=== PATIENT | male | born 1965 | race Two or more races ===

== ENCOUNTER 2024-08-03 06:12 | Emergency (ER) | payer OTHER ==
[~2024-08-03] VITALS: Ht 177.8 cm; Wt 86.5 kg
--- NOTE | 2024-08-03 07:12 | ED.PDOC ---
HPI Comments 59 year old male presents to the ED with chief complaint of headache. Patient reports that he has been experiencing a headache for the past 5 days to his whole head which has never happened before. Patient relays that he had been diagnosed with HTN in the past by his PCP Dr. Butler, however, when he was prescribed Losartan, he had never taken it. Patient states he visited on and was given another prescription of Losartan 50mg, which he has taken since Sunday. Patient's BP was noted to be 202/117 and 217/147 on repeat in triage. Patient denies any dizziness, chest pain, SOB, numbness, weakness, blurred vision, or N/V. Chief Complaint: High Blood Pressure Time Seen by MD: 07:04 Reviewed Notes: Nurses Notes, Medications, Allergies Allergies: Coded Allergies: NO KNOWN ALLERGIES (Unverified , 08/03/24) Information Source: Patient Mode of Arrival: Ambulatory Severity: Moderate Timing: Days Duration: Intermittent Prehospital treatment: None Cardiac Risk Factors: HTN PE Risk Factors: None History of: None Past Medical History PAST MEDICAL HISTORY: HTN Surgical History: Denies all surgeries Family History Family History: Reviewed,noncontributory to illness Social History Smoker: Non-Smoker Alcohol: Denies ETOH Use Drugs: Denies Drug Use Lives In: Home Constitutional: denies: chills, diaphoresis, fatigue, fever, malaise, sweats, weakness, others EENTM: denies: blurred vision, double vision, ear bleeding, ear discharge, ear drainage, ear pain, ear ringing, eye pain, eye redness, hearing loss, mouth pain, mouth swelling, nasal discharge, nose bleeding, nose congestion, nose pain, photophobia, tearing, throat pain, throat swelling, voice changes, others Respiratory: denies: cough, hemoptysis, orthopnea, SOB at rest, shortness of breath, SOB with excertion, stridor, wheezing, others Cardiovascular: denies: chest pain, dizzy spells, diaphoresis, Dyspnea on exertion, edema, irregular heart beat, left arm pain, lightheadedness, palpitations, PND, syncope, others Gastrointestinal: denies: abdomen distended, abdominal pain, blood streaked bowels, constipated, diarrhea, dysphagia, difficulty swallowing, hematemesis, melena, nausea, poor appetite, poor fluid intake, rectal bleeding, rectal pain, vomiting, others Genitourinary: denies: burning, dysuria, flank pain, frequency, hematuria, incontinence, penile discharge, penile sore, pain, testicle pain, testicle swelling, urgency, others Neurological: reports: headache; denies: dizziness, fainting, left sided numbness, left sided weakness, numbness, paresthesia, pre-existing deficit, right sided numbness, right sided weakness, seizure, speech problems, tingling, tremors, weakness, others Musculoskeletal: denies: back pain, gout, joint pain, joint swelling, muscle pain, muscle stiffness, neck pain, others Integumetry: denies: bruises, change in color, change in hair/nails, dryness, laceration, lesions, lumps, rash, wounds, others Allergic/Immunocompromised: denies: Difficulty Healing, Frequent Infections, Hives, Itching, others Hematologic/Lymphatic: denies: anemia, blood clots, easy bleeding, easy bruising, swollen glands, others Endocrine: denies: excessive hunger, excessive sweating, excessive thirst, excessive urination, flushing, intolerance to cold, intolerance to heat, unexplained weight gain, unexplained weight loss, others Psychiatric: denies: anxiety, bipolar disorder, depression, hopeless, panic disorder, schizophrenia, sleepless, suicidal, others All Other Systems: Reviewed and Negative Physical Exam General Appearance: No Apparent Distress, Normal HEENT: Normal ENT Inspection, PERRL/EOMI, TMs Normal Neck: Full Range of Motion, Non-Tender, Normal, Normal Inspection Respiratory: Chest Non-Tender, Lungs Clear, No Accessory Muscle Use, No Respiratory Distress, Normal Breath Sounds Cardiovascular: No Edema, No JVD, No Murmur, No Gallop, Normal Peripheral Pulses, Regular Rate/Rhythm Breast Exam: Deferred Gastrointestinal: No Organomegaly, Non Tender, No Pulsatile Mass, Normal Bowel Sounds, Soft Genitalia: Deferred Pelvic: Deferred Rectal: Deferred Extremities: No calf tenderness, Normal capillary refill, Normal inspection, N ormal range of motion, Non-tender, No pedal edema Musculoskeletal : Apperance: Normal Neurologic: Alert, 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 Was a procedure done?: No CP Differential Dx Differential Diagnosis: MAT, DE, PAC's Differential Diagnosis: CHF, HTN Essential, HTN Accelerated, HTN Encephalopathy Differential Diagnosis: Myocardial Infarction, Pericarditis X-Ray, Labs, Meds, VS Vital Signs Date Time Temp Pulse Resp B/P (MAP) Pulse Ox O2 Delivery O2 Flow Rate FiO2 08/03/24 08:02 65 08/03/24 07:00 98.6 79 16 217/147 (170) 99 08/03/24 07:00 79 Lab Test 08/03/24 08:00 08/03/24 07:15 08/03/24 07:00 Range/Units Troponin I High Sensitivity < 3 L < 3 L </=54 ng/L White Blood Count 8.1 4.4-10.8 10^3/uL Red Blood Count 5.60 4.5-5.90 10^6/uL Hemoglobin 16.8 13.5-17.5 g/dL Hematocrit 50.0 41.0-53.0 % Mean Corpuscular Volume 89.3 80.0-100.0 fL Mean Corpuscular Hemoglobin 30.0 28.0-32.0 pg Mean Corpuscular Hemoglobin Concent 33.5 32.0-36.0 g/dL Red Cell Distribution Width 14.2 11.8-14.3 % Platelet Count 224 140-450 10^3/uL Mean Platelet Volume 7.8 6.9-10.8 fL Neutrophils (%) (Auto) 74.0 37.0-80.0 % Lymphocytes (%) (Auto) 16.9 10.0-50.0 % Monocytes (%) (Auto) 7.6 0.0-12.0 % Eosinophils (%) (Auto) 1.1 0.0-7.0 % Basophils (%) (Auto) 0.4 0.0-2.0 % Neutrophils # (Auto) 6.0 1.6-8.6 10 ^3/uL Lymphocytes # (Auto) 1.4 0.4-5.4 10 ^3/uL Monocytes # (Auto) 0.6 0-1.3 10 ^3/uL Eosinophils # (Auto) 0.1 0-0.8 10 ^3/uL Basophils # (Auto) 0 0-0.2 10 ^3/uL Nucleated Red Blood Cells 0.1 % Sodium Level 141 136-145 mmol/L Potassium Level 4.2 3.5-5.1 mmol/L Chloride Level 105 98-107 mmol/L Carbon Dioxide Level 29 20-31 mmol/L Anion Gap 7 5-15 Blood Urea Nitrogen 15 9-23 mg/dL Creatinine 1.23 0.700-1.30 mg/dL Glomerular Filtration Rate Calc 67 >90 mL/min BUN/Creatinine Ratio 12.2 10.0-20.0 Serum Glucose 96 74-106 mg/dL Calcium Level 10.0 8.7-10.4 mg/dL Urine Color Colorless Yellow Urine Clarity Clear Clear Urine pH 6.5 5.0-9.0 Urine Specific [place] 1.002 1.001-1.035 Urine Protein Negative Negative Urine Ketones Negative Negative Urine Blood Negative Negative /uL Urine Nitrite Negative Negative Urine Bilirubin Negative Negative Urine Urobilinogen Normal Negative mg/dL Urine Leukocyte Esterase Negative Negative /uL Urine RBC <1 0 - 3 /hpf Urine Microscopic WBC < 1 0-3 /HPF Urine Squamous Epithelial Cells None seen <5 /hpf Urine Bacteria None seen None Seen /hpf Urine Glucose Normal Normal mg/dL Time of 1ST Reevaluation: 08:04 Reevaluation 1ST: Unchanged Patient Education/Counseling: Diagnosis, Treatment Family Education/Counseling: No Family Present Departure 1 Departure Time of Disposition: 09:28 (Patient presented with hypertension and symptoms concerning for hypertensive emergency. Patient is receiving iv blood pressure medications requiring intensive monitoring. Data: 1. I ordered and reviewed the result of at least 3 labs including a CBC, BMP, and Urinalysis. 2. I independently interpreted the following tests: CT Brain: Which appears benign. EKG which is Normal Sinus RhythmRisk:This patient has a high risk of morbidity due to further diagnostic testing or treatment and may suffer from an acute cardiac disorder. Workup reveals hypertensive emergency and patient should be admitted for further workup. and possible expert consultation. ) Impression: Primary Impression: Hypertensive emergency Additional Impression: Migraine Qualified Codes: G43.109 - Migraine with aura, not intractable, without status migrainosus Disposition: ADMITTED INPATIENT Admit to: Med Surg Condition: Serious Critical Care Note Critical Care Time?: Yes Critical care comment: Hypertensive emergency Authorized and Performed by: Mandeep Balderrama MD Total critical care time: Approximately 38 minutes Due to a high probability of clinically significant, life threatening deterioration, the patient required my highest level of preparedness to intervene emergently and I personally spent this critical care time directly and personally managing the patient. This critical care time included obtaining a history; examining the patient; pulse oximetry; ordering and review of studies; arranging urgent treatment with development of a management plan; evaluation of patient's response to treatment; frequent reassessment; and, discussions with other providers. This critical care time was performed to assess and manage the high probability of imminent, life-threatening deterioration that could result in multi-organ failure. It was exclusive of separately billable procedures and treating other patients and teaching time. Please see my other sections and the rest of the note for further information on patient assessment and treatment. Stability Stability form required: No Heart Score Heart Score: Heart Score Response (Comments) Value History Highly Suspicious 2 EKG Normal 0 Age 45-64 1 Risk Factors 1 or 2 risk factors 1 Troponin Normal limit 0 Total 4 I personally scribed for MANDEEP BALDERRAMA MD ([email or web address]) on 08/03/24 at 07:12. Electronically submitted by Greg Jean ([email or web address]). MANDEEP BALDERRAMA MD Aug 03, 2024 07:12
[2024-08-03 07:21] LABS: Urine Bacteria None Seen /hpf (None Seen)
[2024-08-03 07:35] LABS: Basophils # (auto) 0 10 ^3/uL (0-0.2); Basophils % (auto) 0.4 % (0.0-2.0); Eosinophils # (auto) 0.1 10 ^3/uL (0-0.8); Eosinophils % (auto) 1.1 % (0.0-7.0); Hemoglobin 16.8 g/dL (13.5-17.5); Lymphocytes # (auto) 1.4 10 ^3/uL (0.4-5.4); Lymphocytes % (auto) 16.9 % (10.0-50.0); Mean Corpuscular Hgb Conc. 33.5 g/dL (32.0-36.0); Mean Corpuscular Volume 89.3 fL (80.0-100.0); Monocytes # (auto) 0.6 10 ^3/uL (0-1.3); Monocytes % (auto) 7.6 % (0.0-12.0); Nucleated Red Blood Cells % 0.1 %; Platelet Count (auto) 224 10^3/uL (140-450); Red Cell Distribution Width 14.2 % (11.8-14.3); White Blood Cell 8.1 10^3/uL (4.4-10.8)
[2024-08-03 07:39] LABS: Chloride 105 mmol/L (98-107); Potassium 4.2 mmol/L (3.5-5.1); Sodium 141 mmol/L (136-145)
[2024-08-03 07:40] LABS: Anion Gap 7 (5-15); Carbon Dioxide 29 mmol/L (20-31)
[2024-08-03 07:45] LABS: BUN/Creatinine Ratio 12.2 (10.0-20.0); Blood Urea Nitrogen 15 mg/dL (9-23); Glucose 96 mg/dL (74-106)
[2024-08-03 07:49] LABS: Urine Blood Negative /uL (Negative); Urine Clarity Clear (Clear); Urine Color Colorless (Yellow); Urine Protein, UAD Negative (Negative); Urine Specific Gravity 1.002 (1.001-1.035); Urine Squamous Epithelial Cell None Seen /hpf (<5); Urine Urobilinogen Normal (Negative); Urine WBC < 1 /HPF (0-3); Urine pH 6.5 (5.0-9.0)
--- NOTE | 2024-08-03 08:10 | DVH ---
CT HEAD WITHOUT CONTRAST INDICATION: htn, headache EXAM DATE: 08/03/2024 07:49 AM COMPARISON: None RADIATION DOSE: CTDIvol: 64 mGy, DLP: 1259 mGy*cm PROCEDURE: CT scans of the head were obtained from the vertex to the skull base. Sagittal and coronal reconstructions were provided. All CT scans at this medical facility are performed using dose modulation techniques as appropriate t o a performed exam including the following: Automated exposure control was utilized; adjustment of th e MA and/or KV according to patient size; and use of iterative reconstruction technique. FINDINGS: The brainshows normal morphology and olivier-white matter differentiation, without intracran ial hemorrhage, extra-axial fluid collection, mass effect or acute large vessel infarct. The ventricl es are normal in size. The basal cisterns are patent. The skull and visible facial bones are intact. The paranasal sinuses, mastoid air cells and middle ear cavities are well-aerated. The soft tissues o f the scalp are unremarkable. IMPRESSION: No acute intracranial abnormality.
--- NOTE | 2024-08-03 08:15 | DVH ---
XY CHEST PORTABLE, HISTORY: htn emergency COMPARISON: None None TECHNICAL DATA: 1 view of the chest was obtained. FINDINGS: Lines and tubes: None Cardiomediastinal silhouette: normal Pulmonary vasculature: normal Lung expansion: normal Lung airspace: normal Lung interstitium: normal Pleura: normal Pneumothorax: no Bones: Unremarkable Other: no IMPRESSION: No acute intrathoracic abnormality.
[2024-08-03] MEDS: SODIUM CHLORIDE 0.9% 1,000 ML IV ONE (09:54)
[2024-08-03] MEDS: ACETAMINOPHEN 325 MG TAB PO ONE (09:55)
[2024-08-03] MEDS: KETOROLAC TROMETH 30 MG/ML 1ML VIAL IV ONE ×2 (09:55→18:15)
[2024-08-03] MEDS: METOCLOPRAMIDE HCL 5MG/ml INJ 2ml VIAL IV ONE (09:56)
[2024-08-03] MEDS: hydrALAZINE HCL 20 MG/ML VL IV ONE (09:58)
[2024-08-03] MEDS ORDERED: LOSA-535 PO (10:33)
--- NOTE | 2024-08-03 10:40 | DVHDS2 ---
Discharge Summary Date of Admission Date of Discharge: Aug 03, 2024 Labs/Diagnostic Data: Laboratory Results Test 08/03/24 08:00 08/03/24 07:15 08/03/24 07:00 Troponin I High Sensitivity < 3 ng/L (</=54) White Blood Count 8.1 10^3/uL (4.4-10.8) Red Blood Count 5.60 10^6/uL (4.5-5.90) Hemoglobin 16.8 g/dL (13.5-17.5) Hematocrit 50.0 % (41.0-53.0) Mean Corpuscular Volume 89.3 fL (80.0-100.0) Mean Corpuscular Hemoglobin 30.0 pg (28.0-32.0) Mean Corpuscular Hemoglobin Concent 33.5 g/dL (32.0-36.0) Red Cell Distribution Width 14.2 % (11.8-14.3) Platelet Count 224 10^3/uL (140-450) Mean Platelet Volume 7.8 fL (6.9-10.8) Neutrophils (%) (Auto) 74.0 % (37.0-80.0) Lymphocytes (%) (Auto) 16.9 % (10.0-50.0) Monocytes (%) (Auto) 7.6 % (0.0-12.0) Eosinophils (%) (Auto) 1.1 % (0.0-7.0) Basophils (%) (Auto) 0.4 % (0.0-2.0) Neutrophils # (Auto) 6.0 10 ^3/uL (1.6-8.6) Lymphocytes # (Auto) 1.4 10 ^3/uL (0.4-5.4) Monocytes # (Auto) 0.6 10 ^3/uL (0-1.3) Eosinophils # (Auto) 0.1 10 ^3/uL (0-0.8) Basophils # (Auto) 0 10 ^3/uL (0-0.2) Nucleated Red Blood Cells 0.1 % Sodium Level 141 mmol/L (136-145) Potassium Level 4.2 mmol/L (3.5-5.1) Chloride Level 105 mmol/L (98-107) Carbon Dioxide Level 29 mmol/L (20-31) Anion Gap 7 (5-15) Blood Urea Nitrogen 15 mg/dL (9-23) Creatinine 1.23 mg/dL (0.700-1.30) Glomerular Filtration Rate Calc 67 mL/min (>90) BUN/Creatinine Ratio 12.2 (10.0-20.0) Serum Glucose 96 mg/dL (74-106) Calcium Level 10.0 mg/dL (8.7-10.4) Urine Color Colorless (Yellow) Urine Clarity Clear (Clear) Urine pH 6.5 (5.0-9.0) Urine Specific [place] 1.002 (1.001-1.035) Urine Protein Negative (Negative) Urine Ketones Negative (Negative) Urine Blood Negative /uL (Negative) Urine Nitrite Negative (Negative) Urine Bilirubin Negative (Negative) Urine Urobilinogen Normal mg/dL (Negative) Urine Leukocyte Esterase Negative /uL (Negative) Urine RBC <1 /hpf (0 - 3) Urine Microscopic WBC < 1 /HPF (0-3) Urine Squamous Epithelial Cells None seen /hpf (<5) Urine Bacteria None seen /hpf (None Seen) Urine Glucose Normal mg/dL (Normal) Other Laboratory Tests 08/03/24 07:15 Brief Hx & Hospital Course: Patient is a 59-year-old male past medical history of hypertension, hip replacement who presents with complaints of headache that has been intermittent for the past five days. Patient states he was recently seen at an urgent care for similar complaint and was prescribed losartan due to his uncontrolled blood pressure. Patient notes that his headache has improved with treatment with Excedrin. He denies any history of migraines. Patient notes that he has not been compliant with his antihypertensives. He notes he recently started taking them over the past five days. Patient presented with systolic blood pressure at 217. There is a concern for hypertensive urgency. No evidence of end organ damage to suggest hypertensive emergency. He notes that he takes losartan 50 mg p.o. q.day. In the ER, patient received Toradol, 1 L NS and hydralazine IV. Patient underwent CT brain without contrast which was negative for any acute intracranial abnormalities. CBC and BMP were within normal limits. Troponin were not elevated x2. Patient denied having any other symptoms. An extensive discussion was had about the importance of remaining compliant with his antihypertensives and risk of heart attack, stroke, renal failure. Patient was counseled on lifestyle modifications, dietary modifications and stress management. Patient was given losartan 100 mg p.o. in the ER. This was followed by labetolol and amlodipine 5mg PO. Patient was monitored for several hours without any complications. His headache had improved prior to discharge. Patient was discharged once his systolic blood pressure was below 180. Patient was discharged on an increased dose of losartan of 100 mg p.o. q.day. and amlodipine 10mg daily. Patient is to follow up with his PCP for further titration and management. Patient is in agreement with the plan with his at bedside in agreement as well. [facility] case management to arrange follow-up appointments. Condition at Discharge: Good Final Diagnosis/Problems List Hypertensive Urgency Secondary Diagnosis: Tension Headache Discharge Disposition: Home Discharge Instruct/Medications Diet: Cardiac 2g Na,low cholest Activity: No Restrictions, As Tolerated Follow Up/Referral: Follow up with Primary Care doctor. Medications: Losartan 100mg daily Discharge Statement: "Patient was advised to return to the ER or call 911 if any headaches, dizziness, shortness of breath, chest pain, abdominal pain, bleeding, fevers, or worsening of medical condition. Patient was counseled about treatment plan, medications, possible side effects, patientverbalized understanding. All questions were answered to the best of my ability. This discharge took greater then 30 minutes in planning, reviewing documentation, counseling the patient, and discussing with other team members." ASSESSMENT ASSESSMENT Assessment Hypertension HI CROOK DO Aug 03, 2024 10:40
[2024-08-03] MEDS: LOSARTAN POTASSIUM 50 MG TAB PO ONE (10:56)
[2024-08-03] MEDS: LABETALOL HCL 20 MG/4 ML VL IV ONE ×2 (13:06→17:50)
[2024-08-03] MEDS: SUMAtriptan SUCCINATE 6 MG/0.5 ML VL SC ONE (15:30)
[2024-08-03] MEDS: amLODIPine BESYLATE 5 MG TAB PO ONE (17:51)
[2024-08-03 18:51] VITALS: BP 172/105; PULSE 67; RESP 20; O2SAT 94
[2024-08-03] MEDS ORDERED: AMLO1TAB23 PO (19:08)
--- NOTE | 2024-08-04 14:41 | ECG ---
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
== END 2024-08-03 19:10 | disposition home or self-care (01) ==
LOC: ER 06:12
DX: I16.1 Hypertensive emergency (principal); G43.909 Migraine, unspecified, not intractable, without status migrainosus
CPT/HCPCS: 36415; 70450; 71045; 80048; 81001; 84484; 85025; 96361; 96372; 96374; 96375; 96376; 99285; J0360; J1885; J2765; J3030; J7030